=== PATIENT | male | born 1955 | race Caucasian/White ===

== ENCOUNTER 2017-03-06 13:21 | Emergency (ER) | payer MEDICAID, OTHER ==
[~2017-03-06] VITALS: Ht 177.8 cm; Wt 72.6 kg
[~2017-03-06 13:21] MED LIST: BENADRYL ALLERG25 M1 PO; EPIPEN 2-P0.3 MG/0.3 IM; PREDNISONE20 MG ORAL
[2017-03-06 13:45] VITALS: BP 108/75
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
--- NOTE | 2017-03-06 14:17 | Diagnostic Imaging Report ---
Indication: Pain Findings: 2 views of the left forearm were obtained. There is an acute fracture of the distal shaft. Fracture is nondisplaced. No malalignment or other fractures are appreciated. Impression: Acute distal ulnar shaft fracture
[2017-03-06] MEDS ORDERED: IBUPROFEN600 MG ORAL (14:18)
[2017-03-06] MEDS ORDERED: NORCO 5-325 TA1 EACH ORAL (14:18)
[2017-03-06 14:30] VITALS: BP 108/75
== END 2017-03-06 14:31 | disposition home or self-care (01) ==
LOC: EMR 13:58
DX: S52.692A Other fracture of lower end of left ulna, initial encounter for closed fracture (principal); V02.99XA Pedestrian with other conveyance injured in collision with two- or three-wheeled motor vehicle, unspecified whether traffic or nontraffic accident, initial encounter; Y93.9 Activity, unspecified; Y92.9 Unspecified place or not applicable; Z95.5 Presence of coronary angioplasty implant and graft
CPT/HCPCS: 29125; 29240; 99284

== ENCOUNTER 2017-03-09 14:24 | Emergency (ER) | payer MEDICAID, OTHER ==
[~2017-03-09] VITALS: Ht 177.8 cm; Wt 72.6 kg
[~2017-03-09 14:24] MED LIST changes: +IBUPROFEN600 MG ORAL; +NORCO 5-325 TA1 EACH ORAL
[2017-03-09 14:38] VITALS: BP 114/77
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
[2017-03-09] MEDS ORDERED: TYLENOL EXTRA500 MG ORAL (14:55)
[2017-03-09] MEDS ORDERED: Norco 5mg/325mg tab ORAL ONE (15:00)
[2017-03-09 15:03] VITALS: BP 114/77
== END 2017-03-09 15:03 | disposition home or self-care (01) ==
LOC: EMR 14:48
DX: M79.602 Pain in left arm (principal); S42.302D Unspecified fracture of shaft of humerus, left arm, subsequent encounter for fracture with routine healing; Z95.5 Presence of coronary angioplasty implant and graft
CPT/HCPCS: 99283